=== PATIENT | female | born 1965 | race Caucasian/White ===

== ENCOUNTER → 2017-08-04 | Outpatient (CLI) | payer MEDICARE, BC, MEDICAID ==
[~2017-08-04] MED LIST: DIABETES MEDICATION; HIGH CHOLESTEROL; SEE COMMENTS
== END ==
LOC: M.RAD 07-05 11:00
DX: Z12.31 Encounter for screening mammogram for malignant neoplasm of breast (principal)

== ENCOUNTER 2018-11-29 07:36 | Emergency (ER) | payer OTHER, MEDICAID ==
[~2018-11-29] VITALS: Ht 160 cm; Wt 80.3 kg
[2018-11-29] MEDS ORDERED: METFORMIN HCL500 MG PO (07:44)
[2018-11-29] MEDS ORDERED: GLIPIZIDE 10 MG10 MG PO (07:46)
[2018-11-29] MEDS ORDERED: JANUVIA50 MG PO (07:51)
[2018-11-29 07:56] LABS: URINE BILIRUBIN NEGATIVE (Negative); URINE BLOOD NEGATIVE (Negative); URINE CLARITY CLEAR; URINE COLOR YELLOW; URINE GLUCOSE-RANDOM 3+ (Negative); URINE KETONES 1+ (Negative); URINE LEUKOCYTES-REFLEX NEGATIVE (Negative); URINE NITRITE-REFLEX NEGATIVE (Negative); URINE PROTEIN NEGATIVE (Negative); URINE SPECIFIC GRAVITY 1.015 (1.005-1.030); URINE UROBILINOGEN 0.2 E.U./dl (0.2-1.0)
[2018-11-29 08:19] LABS: HEMATOCRIT 41.1 % (37.0-47.0); HEMOGLOBIN 12.8 gm/dL (12.0-15.0); MCH 25.2 pg (26.0-34.0); MCHC 31.1 g/dL (28.0-37.0); NUCLEATED RBCS 0 /100WBC; PLATELET COUNT* 296 thou/uL (150-400); RBC 5.07 mil/uL (4.20-5.00); RDW-CV 15.6 % (10.5-14.5); WBC 11.9 thou/uL (4.0-11.0)
[2018-11-29 08:32] LABS: ALBUMIN 3.6 g/dL (3.4-5.0); CALCIUM 9.4 mg/dL (8.5-10.1); CREATININE 0.8 mg/dL (0.6-1.3); POTASSIUM 4.7 mmol/L (3.5-5.1); TOTAL BILIRUBIN 0.2 mg/dL (<0.1-1.0); TOTAL PROTEIN 7.1 g/dL (6.4-8.2)
[2018-11-29 08:54] VITALS: BP 136/53
[2018-11-29 09:46] LABS: ABSOLUTE LYMPHOCYTES 0.8 thou/uL (0.8-5.3); ABSOLUTE MONOCYTES 0.8 thou/uL (0.0-1.2); ABSOLUTE NEUTROPHILS 10.2 thou/uL (1.6-8.1)
[2018-11-29 09:48] LABS: GIANT PLATELETS RARE; LARGE PLATELETS FEW; PLATELET ESTIMATE ADEQUATE
[2018-11-29 09:49] LABS: ANISOCYTOSIS 1+; BURR CELLS Occasional; MACROCYTES 1+; OVALOCYTES Occasional; POLYCHROMASIA 1+
[2018-11-29 09:51] LABS: POIKILOCYTOSIS 1+; TEARDROPS 1+
[2018-11-30] MEDS ORDERED: NORCO 5-325 TA1 EACH PO (02:22)
== END 2018-11-29 08:55 | disposition home or self-care (01) ==
LOC: M.ERS 07:36
PROVIDERS: Family Medicine
DX: R10.11 Right upper quadrant pain (principal); E78.00 Pure hypercholesterolemia, unspecified; E11.9 Type 2 diabetes mellitus without complications; Z90.710 Acquired absence of both cervix and uterus

== ENCOUNTER 2018-11-30 01:00 | Emergency (ER) | payer OTHER, MEDICAID ==
[~2018-11-30] VITALS: Ht 160 cm; Wt 79.5 kg
[~2018-11-30 01:00] MED LIST changes: +GLIPIZIDE 10 MG10 MG PO; +JANUVIA50 MG PO; +METFORMIN HCL500 MG PO
[2018-11-30 01:21] LABS: ABSOLUTE BASOPHILS 0.1 thou/uL (0.0-0.2); ABSOLUTE EOSINOPHILS 0.2 thou/uL (0.0-0.7); ABSOLUTE LYMPHOCYTES 1.5 thou/uL (0.8-5.3); ABSOLUTE MONOCYTES 1.1 thou/uL (0.0-1.2); ABSOLUTE NEUTROPHILS 10.2 thou/uL (1.6-8.1); BASOPHILS 1.1 %; EOSINOPHILS 1.6 %; HEMATOCRIT 37.6 % (37.0-47.0); HEMOGLOBIN 12.1 gm/dL (12.0-15.0); LYMPHOCYTES 11.1 %; MCH 25.8 pg (26.0-34.0); MCHC 32.2 g/dL (28.0-37.0); MCV 79.9 fL (80.0-100.0); MONOCYTES 8.4 %; MPV 7.5 fl. (7.2-11.1); NUCLEATED RBCS 0 /100WBC; PLATELET COUNT* 279 thou/uL (150-400); POLYS 77.8 %; RBC 4.71 mil/uL (4.20-5.00); RDW-CV 15.6 % (10.5-14.5); WBC 13.1 thou/uL (4.0-11.0)
[2018-11-30 01:36] LABS: ALBUMIN 3.3 g/dL (3.4-5.0); CALCIUM 8.7 mg/dL (8.5-10.1); CREATININE 0.8 mg/dL (0.6-1.3); TOTAL BILIRUBIN 0.3 mg/dL (<0.1-1.0); TOTAL PROTEIN 6.8 g/dL (6.4-8.2)
[2018-11-30] MEDS ORDERED: NORCO 5-325 TA1 EACH PO (02:22)
[2018-11-30 02:42] LABS: URINE BILIRUBIN NEGATIVE (Negative); URINE BLOOD NEGATIVE (Negative); URINE CLARITY CLEAR; URINE COLOR YELLOW; URINE GLUCOSE-RANDOM 3+ (Negative); URINE KETONES 2+ (Negative); URINE LEUKOCYTES-REFLEX NEGATIVE (Negative); URINE NITRITE-REFLEX NEGATIVE (Negative); URINE PROTEIN NEGATIVE (Negative); URINE SPECIFIC GRAVITY 1.025 (1.005-1.030); URINE UROBILINOGEN 0.2 E.U./dl (0.2-1.0)
[2018-11-30 03:01] VITALS: BP 124/68
== END 2018-11-30 03:01 | disposition home or self-care (01) ==
LOC: M.ERS 01:00
PROVIDERS: Emergency Medicine
DX: K80.50 Calculus of bile duct without cholangitis or cholecystitis without obstruction (principal); E11.9 Type 2 diabetes mellitus without complications; E78.00 Pure hypercholesterolemia, unspecified; Z90.710 Acquired absence of both cervix and uterus

== ENCOUNTER 2019-02-18 19:09 | Inpatient (IN) | payer OTHER, MEDICAID ==
[~2019-02-18] VITALS: Ht 160 cm; Wt 67.6 kg
[~2019-02-18 19:09] MED LIST changes: +NORCO 5-325 TA1 EACH PO
[2019-02-18 19:19] VITALS: BP 108/65
[2019-02-18] MEDS ORDERED: LIPITOR10 MG PO (19:24)
[2019-02-18 20:06] LABS: ABSOLUTE BASOPHILS 0.1 thou/uL (0.0-0.2); ABSOLUTE EOSINOPHILS 0.1 thou/uL (0.0-0.7); ABSOLUTE LYMPHOCYTES 0.6 thou/uL (0.8-5.3); ABSOLUTE MONOCYTES 1.2 thou/uL (0.0-1.2); ABSOLUTE NEUTROPHILS 9.4 thou/uL (1.6-8.1); BASOPHILS 0.7 %; EOSINOPHILS 0.9 %; HEMATOCRIT 44.6 % (37.0-47.0); HEMOGLOBIN 14.2 gm/dL (12.0-15.0); LYMPHOCYTES 5.5 %; MCH 26.5 pg (26.0-34.0); MCHC 31.9 g/dL (28.0-37.0); MCV 83.2 fL (80.0-100.0); MONOCYTES 10.4 %; NUCLEATED RBCS 0 /100WBC; PLATELET COUNT* 362 thou/uL (150-400); POLYS 82.5 %; RBC 5.36 mil/uL (4.20-5.00); RDW-CV 16.6 % (10.5-14.5); WBC 11.3 thou/uL (4.0-11.0)
[2019-02-18 20:09] LABS: URINE BLOOD NEGATIVE (Negative); URINE CLARITY CLEAR; URINE COLOR YELLOW; URINE GLUCOSE-RANDOM 2+ (Negative); URINE KETONES 2+ (Negative); URINE LEUKOCYTES-REFLEX NEGATIVE (Negative); URINE NITRITE-REFLEX NEGATIVE (Negative); URINE PROTEIN TRACE (Negative); URINE SPECIFIC GRAVITY 1.025 (1.005-1.030); URINE UROBILINOGEN 0.2 E.U./dl (0.2-1.0)
[2019-02-18 20:12] LABS: BE -7.7 mmol/L (-2 to +3); PCO2 30.7 mmHg (35.0-45.0)
[2019-02-18 20:13] LABS: ANION GAP 18 mmol/L (7-16); BUN 30 mg/dL (7-18); CALCIUM 9.6 mg/dL (8.5-10.1); CHLORIDE 102 mmol/L (98-107); CO2 20 mmol/L (21-32); CREATININE 0.9 mg/dL (0.6-1.3); GLUCOSE 158 mg/dL (70-99); POTASSIUM 4.8 mmol/L (3.5-5.1); SODIUM 140 mmol/L (136-145)
[2019-02-18 20:15] LABS: INR 0.9; PROTIME 9.4 Seconds (9.20-11.50)
[2019-02-18 20:17] LABS: ICTOTEST (BILI CONFIRMATORY) Negative (Negative); URINE BILIRUBIN 1+ (Negative)
[2019-02-18 20:24] LABS: ALBUMIN 3.9 g/dL (3.4-5.0); ALKALINE PHOSPHATASE 104 U/L (46-116); MAGNESIUM 1.9 mg/dL (1.8-2.4); NT-PRO BRAIN NAT PEPTIDE 103 pg/mL (<300); SGOT 24 U/L (15-37); SGPT 27 U/L (30-65); TOTAL BILIRUBIN 0.4 mg/dL (<0.1-1.0); TROPONIN-I LEVEL <0.06 ng/mL (<0.06)
[2019-02-18 21:51] VITALS: BP 111/87
[2019-02-18 22:45] VITALS: BP 101/46
[2019-02-19] VITALS (10 sets, daily range): BP systolic 81–120; BP diastolic 45–67
--- NOTE | 2019-02-19 05:29 | NUR ---
PT RECIEVED FROM ED. ALERT AND ORIENTED X4. CALL LIGHT WITHIN REACH AND BED IN LOW POSITION. DENIES PAIN AND NAUSEA. SAT MAINTAINED IN RA. HOURLY ROUNDING DONE FOR PT SAFETY.
[2019-02-19] MEDS ORDERED: AMARYL2 MG PO (08:43)
[2019-02-19 09:08] LABS: CALCIUM 8.2 mg/dL (8.5-10.1); CREATININE 0.6 mg/dL (0.6-1.3); MAGNESIUM 1.7 mg/dL (1.8-2.4); POTASSIUM 4.3 mmol/L (3.5-5.1)
--- NOTE | 2019-02-19 12:20 | NUR ---
Pt is A&O. Resides at home with her boyfriend. Active and independent, but does not drive, BF drives. No DME. No hx of HH or SNF. Goal is home at dc, no needs anticipated.
--- NOTE | 2019-02-19 16:09 | EKG ---
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1965 Requested By: Denise Looney Order Number: [id number] MD: Ronn Escalante Measurements Intervals [place] Rate: 96 P: 22 CO: 124 QRS: 49 QRSD: 78 T: 7 QT: 348 QTc: 440 Interpretive Statements Sinus rhythm Nonspecific T abnormalities, anterior leads Compared to ECG 05/07/2010 09:29:56 T-wave abnormality now present Electronically Signed On 02-19-2019 16:09:34 CDT by Ronn Escalante [email or web address] <ELECTRONICALLY SIGNED> By: Ronn Escalante MD, [facility] 02/19/19 1609 [id number] 35 Ronn Escalante MD, [facility] /EPI
--- NOTE | 2019-02-19 19:04 | NUR ---
ASSUSMED CARE OF PT APPROX 0730. PT REASSESMENT COMPLETED CHARTED. MEDICATIONS GIVEN CHARTED. PT CALLS OUT APPROPRIATELY FOR NEEDS. STAND BY ASSIST WITH PT TO BATHROOM AND CHAIR. PT NEEDS MET. PERSONAL ITEMS AND CALL LIGHT WITHIN REACH.
--- NOTE | 2019-02-19 19:29 | NUR ---
I HAVE REVIEWED AND AGREE WITH THE ASSESMENT AND NOTE OF ROBBIE Garner RN ON 02/19/19
[2019-02-20 02:07] LABS: GLYCOHEMOGLOBIN (HGB A1C) 6.1 % (4.8-5.6)
[2019-02-20 04:00] VITALS: BP 93/53
--- NOTE | 2019-02-20 05:04 | NUR ---
PT CARE ASSUMED AT 1930. SAT MAINTAINED IN RA. ALERT AND ORIENTED X4. CALL LIGHT WITHIN REACH AND BED IN LOW POSITION. C/O PAIN, MEDICATION GIVEN PER EMAR. HOURLY ROUNDING DONE FOR PT SAFETY.
[2019-02-20 05:31] LABS: CALCIUM 8.9 mg/dL (8.5-10.1); CREATININE 0.6 mg/dL (0.6-1.3); MAGNESIUM 2.1 mg/dL (1.8-2.4); POTASSIUM 3.7 mmol/L (3.5-5.1)
[2019-02-20 08:00] VITALS: BP 118/67
[2019-02-20 12:25] VITALS: BP 118/67
--- NOTE | 2019-02-20 13:52 | NUR ---
ASSUMED PT CARE AT 0700, PT A&O X4, VSS, INDUSTRIAL COMMERCIAL GROUNDSKEEPER TRACING SINUS RHYTHM, RA, FULL ASSESSMENT CHARTED. PT DENIES ANY N/V, EDUCATED ON CHANGES TO MEDICATION, PT STATES UNDERSTANDING. PT DISCHARGED FROM UNIT AT APPROX 1345 VIA WHEELCHAIR WITH BROTHER AND NURSING STAFF. EDUCATED ON ALL DISCHARGE INSTRUCTIONS INCLUDING FOLLOW UP APPTS AND MEDICATIONS, IV AND INDUSTRIAL COMMERCIAL GROUNDSKEEPER REMOVED, HOURLY ROUNDING COMPLETED.
== END 2019-02-20 13:45 | disposition home or self-care (01) | DRG 392 ==
LOC: M.ERS 19:09 → M.2W 20:49 → M.TBA-ER 20:49 → M.2W 21:26
PROVIDERS: Internal Medicine; Personal Emergency Response Attendant; ADMIT Internal Medicine
DX: A08.4 Viral intestinal infection, unspecified (principal); R65.10 Systemic inflammatory response syndrome (SIRS) of non-infectious origin without acute organ dysfunction; E87.2 Acidosis; E11.9 Type 2 diabetes mellitus without complications; R82.4 Acetonuria; E78.00 Pure hypercholesterolemia, unspecified; E11.649 Type 2 diabetes mellitus with hypoglycemia without coma; E86.9 Volume depletion, unspecified; T50.905A Adverse effect of unspecified drugs, medicaments and biological substances, initial encounter; Z90.49 Acquired absence of other specified parts of digestive tract; Z90.710 Acquired absence of both cervix and uterus; Z79.1 Long term (current) use of non-steroidal anti-inflammatories (NSAID); Z79.84 Long term (current) use of oral hypoglycemic drugs; Z79.899 Other long term (current) drug therapy; Z91.14 Patient's other noncompliance with medication regimen; Y92.89 Other specified places as the place of occurrence of the external cause

== ENCOUNTER 2019-04-03 02:42 | Emergency (ER) | payer OTHER, MEDICAID ==
[~2019-04-03] VITALS: Ht 160 cm; Wt 65.3 kg
[~2019-04-03 02:42] MED LIST changes: +AMARYL2 MG PO; +LIPITOR10 MG PO
[2019-04-03 03:15] LABS: ABSOLUTE BASOPHILS 0.1 thou/uL (0.0-0.2); ABSOLUTE EOSINOPHILS 0.1 thou/uL (0.0-0.7); ABSOLUTE LYMPHOCYTES 0.9 thou/uL (0.8-5.3); ABSOLUTE MONOCYTES 1.2 thou/uL (0.0-1.2); ABSOLUTE NEUTROPHILS 10.9 thou/uL (1.6-8.1); BASOPHILS 0.8 %; EOSINOPHILS 0.5 %; HEMOGLOBIN 12.2 gm/dL (12.0-15.0); LYMPHOCYTES 6.8 %; MCHC 31.3 g/dL (28.0-37.0); MCV 83.2 fL (80.0-100.0); MONOCYTES 8.8 %; MPV 7.8 fl. (7.2-11.1); NUCLEATED RBCS 0 /100WBC; PLATELET COUNT* 280 thou/uL (150-400); POLYS 83.1 %; RBC 4.69 mil/uL (4.20-5.00); RDW-CV 14.2 % (10.5-14.5); WBC 13.1 thou/uL (4.0-11.0)
[2019-04-03 03:19] LABS: ANION GAP 12 mmol/L (7-16); BUN 20 mg/dL (7-18); CALCIUM 9.1 mg/dL (8.5-10.1); CHLORIDE 100 mmol/L (98-107); CO2 23 mmol/L (21-32); CREATININE 0.7 mg/dL (0.6-1.3); GLUCOSE 154 mg/dL (70-99); POTASSIUM 3.9 mmol/L (3.5-5.1); SODIUM 135 mmol/L (136-145)
[2019-04-03 03:28] LABS: ALBUMIN 3.7 g/dL (3.4-5.0); ALKALINE PHOSPHATASE 91 U/L (46-116); MAGNESIUM 1.7 mg/dL (1.8-2.4); SGOT 12 U/L (15-37); SGPT 17 U/L (30-65); TOTAL BILIRUBIN 0.3 mg/dL (<0.1-1.0); TOTAL PROTEIN 7.1 g/dL (6.4-8.2); TROPONIN-I LEVEL <0.06 ng/mL (<0.06)
[2019-04-03 03:29] LABS: BE -1.8 mmol/L (-2 to +3); PCO2 33.2 mmHg (35.0-45.0); PO2 75.7 mmHg (75.0-100.0); pH 7.434 (7.340-7.450)
[2019-04-03 04:59] LABS: URINE BILIRUBIN NEGATIVE (Negative); URINE BLOOD TRACE (Negative); URINE CLARITY CLEAR; URINE COLOR YELLOW; URINE GLUCOSE-RANDOM 3+ (Negative); URINE KETONES 2+ (Negative); URINE LEUKOCYTES-REFLEX NEGATIVE (Negative); URINE NITRITE-REFLEX NEGATIVE (Negative); URINE PROTEIN NEGATIVE (Negative); URINE SPECIFIC GRAVITY 1.015 (1.005-1.030); URINE UROBILINOGEN 0.2 E.U./dl (0.2-1.0)
[2019-04-03] MEDS ORDERED: IBUPROFEN 400400 M1 PO (05:10)
[2019-04-03] MEDS ORDERED: CIPROFLOXACIN500 M1 PO (05:10)
[2019-04-03 06:44] VITALS: BP 116/53
--- NOTE | 2019-04-03 16:21 | EKG ---
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[place] : 1965 Requested By: Denise Looney Order Number: [id number] MD: Can Pichardo Measurements Intervals [place] Rate: 107 P: 25 AL: 114 QRS: 56 QRSD: 84 T: 33 QT: 404 QTc: 539 Interpretive Statements Sinus tachycardia Nonspecific T abnormalities, anterior leads Prolonged QT interval Compared to ECG 02/18/2019 19:36:50 Prolonged QT interval now present Sinus rate has increased T-wave abnormality still present Electronically Signed On 04-03-2019 16:20:56 CDT by Can Pichardo [email or web address] <ELECTRONICALLY SIGNED> By: Can Pichardo MD, [facility] 04/03/19 [id number] Can Pichardo MD, [facility] /EPI
== END 2019-04-03 06:44 | disposition home or self-care (01) ==
LOC: M.ERS 02:42
PROVIDERS: Personal Emergency Response Attendant
DX: E86.0 Dehydration (principal); R50.9 Fever, unspecified; E78.00 Pure hypercholesterolemia, unspecified; E11.9 Type 2 diabetes mellitus without complications; Z90.710 Acquired absence of both cervix and uterus; Z90.49 Acquired absence of other specified parts of digestive tract

== ENCOUNTER 2019-09-27 02:30 | Emergency (ER) | payer OTHER, MEDICAID ==
[~2019-09-27] VITALS: Ht 160 cm; Wt 64.4 kg
[~2019-09-27 02:30] MED LIST changes: +CIPROFLOXACIN500 M1 PO; +IBUPROFEN 400400 M1 PO
[2019-09-27 03:29] LABS: ABSOLUTE BASOPHILS 0.1 thou/uL (0.0-0.2); ABSOLUTE EOSINOPHILS 0.1 thou/uL (0.0-0.7); ABSOLUTE LYMPHOCYTES 0.5 thou/uL (0.8-5.3); ABSOLUTE MONOCYTES 0.9 thou/uL (0.0-1.2); BASOPHILS 0.8 %; EOSINOPHILS 1.6 %; HEMATOCRIT 38.2 % (37.0-47.0); HEMOGLOBIN 12.8 gm/dL (12.0-15.0); LYMPHOCYTES 6.8 %; MCH 27.7 pg (26.0-34.0); MCHC 33.6 g/dL (28.0-37.0); MCV 82.5 fL (80.0-100.0); MPV 7.4 fl. (7.2-11.1); NUCLEATED RBCS 0 /100WBC; PLATELET COUNT* 269 thou/uL (150-400); POLYS 78.8 %; RBC 4.63 mil/uL (4.20-5.00); RDW-CV 15.4 % (10.5-14.5); WBC 7.6 thou/uL (4.0-11.0)
[2019-09-27 03:37] LABS: CALCIUM 8.4 mg/dL (8.5-10.1); CREATININE 0.8 mg/dL (0.6-1.3)
[2019-09-27 03:41] LABS: ALBUMIN 3.5 g/dL (3.4-5.0); TOTAL BILIRUBIN 0.2 mg/dL (<0.1-1.0)
[2019-09-27 03:48] LABS: URINE BILIRUBIN NEGATIVE (Negative); URINE BLOOD NEGATIVE (Negative); URINE CLARITY CLEAR; URINE COLOR YELLOW; URINE GLUCOSE-RANDOM 3+ (Negative); URINE KETONES NEGATIVE (Negative); URINE LEUKOCYTES-REFLEX NEGATIVE (Negative); URINE NITRITE-REFLEX NEGATIVE (Negative); URINE PROTEIN NEGATIVE (Negative); URINE SPECIFIC GRAVITY 1.025 (1.005-1.030); URINE UROBILINOGEN 0.2 E.U./dl (0.2-1.0)
[2019-09-27 04:37] LABS: ESR (SEDRATE) 17 mm/hr (0-30)
[2019-09-27 04:40] LABS: AMP/METHAMP Negative (Negative); BARBITURATES Negative (Negative); BENZODIAZEPINES Negative (Negative); COCAINE Negative (Negative); METHADONE Negative (Negative); OPIATES Negative (Negative); PCP Negative (Negative); THC Negative (Negative)
[2019-09-27 06:27] VITALS: BP 114/60
== END 2019-09-27 06:29 | disposition home or self-care (01) ==
LOC: M.ERS 02:30
PROVIDERS: Emergency Medicine
DX: R53.1 Weakness (principal); M79.18 Myalgia, other site; E11.9 Type 2 diabetes mellitus without complications; E78.00 Pure hypercholesterolemia, unspecified; Z90.710 Acquired absence of both cervix and uterus; Z90.49 Acquired absence of other specified parts of digestive tract; Z79.899 Other long term (current) drug therapy

== ENCOUNTER 2020-09-13 00:08 | Emergency (ER) | payer OTHER, MEDICAID ==
[~2020-09-13] VITALS: Ht 157.5 cm; Wt 69.0 kg
[2020-09-13 01:13] LABS: HEMATOCRIT 38.8 % (37.0-47.0); HEMOGLOBIN 12.5 gm/dL (12.0-15.0); MCH 27.2 pg (26.0-34.0); MCHC 32.2 g/dL (28.0-37.0); MCV 84.7 fL (80.0-100.0); MPV 7.3 fl. (7.2-11.1); NUCLEATED RBCS 0 /100WBC; PLATELET COUNT* 316 thou/uL (150-400); RBC 4.59 mil/uL (4.20-5.00); RDW-CV 13.6 % (10.5-14.5); WBC 15.7 thou/uL (4.0-11.0)
[2020-09-13 01:19] LABS: CALCIUM 9.3 mg/dL (8.5-10.1); CREATININE 0.9 mg/dL (0.6-1.3); POTASSIUM 4.3 mmol/L (3.5-5.1)
[2020-09-13 01:23] LABS: TOTAL BILIRUBIN 0.2 mg/dL (<0.1-1.0); TOTAL PROTEIN 7.5 g/dL (6.4-8.2)
[2020-09-13] MEDS ORDERED: GLIPIZIDE 10 MG10 MG PO ×2 (02:26→02:27)
[2020-09-13] MEDS ORDERED: ZOFRAN ODT4 MG PO (02:27)
[2020-09-13 02:36] LABS: ABSOLUTE EOSINOPHILS 0.2 thou/uL (0.0-0.7); ABSOLUTE LYMPHOCYTES 0.9 thou/uL (0.8-5.3); ABSOLUTE MONOCYTES 0.9 thou/uL (0.0-1.2); ABSOLUTE NEUTROPHILS 13.7 thou/uL (1.6-8.1); PLATELET ESTIMATE ADEQUATE
[2020-09-13 02:53] VITALS: BP 120/68
--- NOTE | 2020-09-13 10:57 | EKG ---
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[facility] : 1965 Requested By: Dinora Nance Order Number: [id number] MD: Ronn Escalante Measurements Intervals [place] Rate: 91 P: 29 NE: 133 QRS: 37 QRSD: 86 T: 33 QT: 360 QTc: 443 Interpretive Statements Sinus rhythm Low voltage, precordial leads Nonspecific T abnormalities, anterior leads Compared to ECG 04/03/2019 02:51:41 Low QRS voltage now present Sinus tachycardia no longer present Prolonged QT interval no longer present T-wave abnormality still present Electronically Signed On 09-13-2020 10:57:14 HOME CARE SPECIALIST by Ronn Escalante [email or web address] <ELECTRONICALLY SIGNED> By: Ronn Escalante MD, FAC 09/13/20 1057 012 0122 Ronn Escalante MD, FAC /EPI
== END 2020-09-13 02:53 | disposition home or self-care (01) ==
LOC: M.ERS 00:08
PROVIDERS: Emergency Medicine
DX: E11.65 Type 2 diabetes mellitus with hyperglycemia (principal); R11.2 Nausea with vomiting, unspecified; R74.8 Abnormal levels of other serum enzymes; E78.00 Pure hypercholesterolemia, unspecified; Z90.49 Acquired absence of other specified parts of digestive tract; Z90.710 Acquired absence of both cervix and uterus